=== PATIENT | male | born 1955 | race Caucasian/White ===

== ENCOUNTER → 2018-08-16 | Outpatient (CLI) | payer BC ==
--- NOTE | 2018-08-16 19:03 | PN ---
PROGRESS NOTE DATE OF SERVICE: 08/16/2018 63-year-old gentleman who has been followed in Sleep Center for treatment of obstructive sleep apnea-hypopnea syndrome. The patient successfully continuing to use his CPAP equipment every night for the whole night without any significant problems related to mask pressure or humidification. [place] Sleepiness Scale today is 4, which is normal. I checked his CPAP unit. CPAP pressure 9 cm of water. Usage is 100% of the time more than 4 hours. Leak is 4.4% which is borderline. Apnea-hypopnea index only 1.0, which is totally perfect. MEDICATIONS: Prozac, Lipitor, hydrochlorothiazide, aspirin, iron supplement. PHYSICAL EXAM: gentleman without distress. BP 143/87, HR 54, RR 16, height 6 feet 0 inches, weight 281.0, BMI 38.1, temperature 98.1, oxygen saturation on room air 94%. Oropharynx extremely low position of soft palate. ABDOMEN: Obese. Neck Supple, no JVD. Thyroid is not palpable. LUNGS Clear to percussion and to auscultation. Good air exchange. No wheezing or rhonchi. HEART S1, S2 regular. No murmurs, gallops, or rubs. ABDOMEN: Obese. Soft and nontender. Bowel sounds are present. No organomegaly appreciated. EXTREMITIES No clubbing or cyanosis. FIELD ADJUSTER Awake, alert, and oriented X3. Cranial nerves 2 to 7 intact. There is no fasciculation or atrophy. noted. No focal deficits observed. IMPRESSION: 1. Obstructive sleep apnea-hypopnea syndrome. The patient demonstrated 100% compliance with treatment benefitting from treatment. The patient has severe sleep apnea by results of sleep study in 2011. 2. Depression. 3. Hypertension. 4. Hyperlipidemia. 5. Allergy. 6. History of iron deficiency anemia. 7. History of polyps in the colon. 8. Nasoseptal deviation. PLAN: 1. Patient will continue to use CPAP equipment every night for the whole night. 2. Losing weight. 3. No driving if feeling sleepiness. 4. Prescription for all necessary CPAP supplies. 5. Patient CPAP unit is 6 years. It is still working. If any problem with the unit, it will be replaced. Thank you very much for allowing me to participate in management of your patient. Sincerely, Darren Garcia MD, PhD, FAASM Diplomat of [employer] Specialties [employer] Board of Internal Medicine [place] of [facility] [place] MMJOSE FRANCISCO / MOLLY: [id number] /
== END | disposition home or self-care (01) ==
LOC: SLEEP 15:05
PROVIDERS: ATTEND Internal Medicine
DX: G47.33 Obstructive sleep apnea (adult) (pediatric) (principal); F32.9 Major depressive disorder, single episode, unspecified; I10 Essential (primary) hypertension; E78.5 Hyperlipidemia, unspecified; J34.2 Deviated nasal septum; T78.40XD Allergy, unspecified, subsequent encounter; Z86.2 Personal history of diseases of the blood and blood-forming organs and certain disorders involving the immune mechanism; Z86.010 Personal history of colon polyps

== ENCOUNTER → 2019-08-29 | Outpatient (CLI) | payer BC ==
--- NOTE | 2019-08-29 19:04 | PN ---
PROGRESS NOTE DATE OF SERVICE: 08/29/2019 This patient is a 64-year-old gentleman who has been followed in Sleep Center for treatment of obstructive sleep apnea-hypopnea syndrome. The patient continues to use his CPAP equipment every night for the whole night with nasal pillow mask [employer] FX. He does not have significant problems with the mask, pressure or humidification. [place] Sleepiness Scale today is 3. I checked his CPAP unit. CPAP pressure is 9 cm of water. Usage is 30/30 nights for more than 4 hours with average usage 6.9 hours per night. Leak is 30 L/minute. Apnea- hypopnea index is only 2.3, which is absolutely perfect. MEDICATIONS: 1. Prozac. 2. Lipitor. 3. Hydrochlorothiazide. 4. Iron supplement. PHYSICAL EXAMINATION: GENERAL: A pleasant patient in no distress. VITAL SIGNS: BP 143/85, HR 57, RR 16, height 5 feet 11-3/4 inches, weight 281.0, temperature 98.4, oxygen saturation at room air 94%. Body mass index 38.4. HEENT: ONEALRJASMINE, EOMI. Evaluation of oropharynx showed tongue protrudes midline. Extremely low position of soft palate. Mallampati III to IV. NECK: Supple. No JVD. Thyroid is not palpable. LUNGS: Clear to percussion and to auscultation. Good air exchange. No wheezing or rhonchi. HEART: S1, S2 regular. No murmurs, gallops or rubs. ABDOMEN: Obese. EXTREMITIES: No clubbing or cyanosis. TILE MOLDER: Awake, alert, and oriented X3. Cranial nerves 2 to 7 intact. There is no fasciculation or atrophy. noted. No focal deficits observed. IMPRESSION: 1. Obstructive sleep apnea-hypopnea syndrome in severe range. He demonstrated 100% compliance with treatment, benefitting from treatment. 2. Depression. 3. Hypertension. 4. Hyperlipidemia. 5. Allergies. 6. History of polyps in the colon. Recently patient had colonoscopy; several polyps have been removed. 7. History of iron deficiency anemia, on iron supplement. 8. Nasal septum deviation. PLAN: 1. Patient will continue to use CPAP equipment every night for the whole night. 2. Losing weight. 3. Sleep hygiene with regular time in bed for at least 7-1/2 to 8 hours. 4. I will maintain prescriptions for all necessary CPAP supplies, including nasal pillow, mask, tube, filters. 5. Prescription for additional chinstrap. 6. No driving if feeling any sleepiness. 7. Follow-up visit in one year, or earlier if patient has any problems. Thank you very much for allowing me to participate in the management of your patient. Sincerely, Darren Garcia MD, PhD, FAASM Diplomat of [employer] Specialties [employer] Board of Internal Medicine [place] Manager of [facility] [place] MMODL / IJN: [id number] /
== END | disposition home or self-care (01) ==
LOC: SLEEP 15:12
PROVIDERS: ATTEND Internal Medicine
DX: G47.33 Obstructive sleep apnea (adult) (pediatric) (principal); F32.9 Major depressive disorder, single episode, unspecified; I10 Essential (primary) hypertension; E78.5 Hyperlipidemia, unspecified; T78.40XA Allergy, unspecified, initial encounter; Z86.010 Personal history of colon polyps; Z86.39 Personal history of other endocrine, nutritional and metabolic disease; J34.2 Deviated nasal septum; Z99.89 Dependence on other enabling machines and devices; Z79.899 Other long term (current) drug therapy

== ENCOUNTER → 2020-09-03 | Outpatient (CLI) | payer MEDICARE, BC ==
--- NOTE | 2020-09-03 22:20 | SFUN ---
SLEEP CENTER FOLLOW UP NOTE DATE OF SERVICE: 09/03/2020 This 65-year-old gentleman who has been followed in Sleep Center for treatment of obstructive sleep apnea-hypopnea syndrome. Patient continues to use CPAP equipment every night. No problems with the supplies. He sleeps well. No snoring. [place] Sleepiness Scale is 2. I checked his CPAP unit. CPAP pressure is 9 cm of water. Usage is 100% of the time, 8.4 hours per night. Leak is 31 L/minute. Apnea-hypopnea index is 4.1, which includes central apneas, index 1.7, which is in normal range. PRESENT MEDICATIONS: 1. Iron 65 mg twice a day. 2. Atorvastatin 40 mg once a day. 3. Fluoxetine 20 mg once a day. 4. Hydrochlorothiazide 25 mg once a day. PHYSICAL EXAMINATION: GENERAL: A pleasant patient in no distress. VITAL SIGNS: BP 148/81, HR 57, RR 15, height 5 feet 9-3/4 inches, weight 274.2, temperature 97.8, oxygen saturation at room air 98%. HEENT: PERRLA, EOMI. Evaluation of oropharynx showed tongue protrudes midline. Low position of soft palate. Mallampati III to IV. NECK: Supple. No JVD. Thyroid is not palpable. LUNGS: Clear to percussion and to auscultation. Good air exchange. No wheezing or rhonchi. HEART: S1, S2 regular. No murmurs, gallops or rubs. ABDOMEN: Obese. EXTREMITIES: No clubbing or cyanosis. CONCESSION WORKER: Awake, alert, and oriented X3. Cranial nerves 2 to 7 intact. There is no fasciculation or atrophy. noted. No focal deficits observed. IMPRESSION: 1. Obstructive sleep apnea-hypopnea syndrome. Patient demonstrated 100% compliance with treatment, benefitting from treatment. 2. Hypertension. 3. Depression. 4. Hyperlipidemia. 5. Allergies. 6. History of iron deficiency anemia. 7. Nasal septum deviation. PLAN: 1. Patient will continue to use PAP equipment every night for the whole night. 2. Sleep hygiene with regular time in bed for at least 7-1/2 to 8 hours. 3. Precautions related to driving. No driving if feeling sleepiness. 4. I will maintain all necessary prescription for PAP supplies including mask, tube, filters. 5. Watching weight. 6. No driving if feeling sleepiness. 7. Follow-up visit in 6 months or earlier if patient has any problems. Thank you very much for allowing me to participate in the management of your patient. Sincerely, Darren Garcia MD, PhD, FAASM Diplomat of [employer] Board [employer] Specialties Slovenian Board of Internal Medicine Pipe Fitter [place] of [facility] [place] MMJOSE FRANCISCO / MOLLY: [id number] /
== END | disposition home or self-care (01) ==
LOC: SLEEP 13:04
PROVIDERS: ATTEND Internal Medicine
DX: G47.33 Obstructive sleep apnea (adult) (pediatric) (principal); I10 Essential (primary) hypertension; F32.9 Major depressive disorder, single episode, unspecified; E78.5 Hyperlipidemia, unspecified; J34.2 Deviated nasal septum; Z86.2 Personal history of diseases of the blood and blood-forming organs and certain disorders involving the immune mechanism; T78.40XA Allergy, unspecified, initial encounter; Z79.899 Other long term (current) drug therapy; Z79.84 Long term (current) use of oral hypoglycemic drugs; Z99.89 Dependence on other enabling machines and devices

== ENCOUNTER → 2021-03-04 | Outpatient (CLI) | payer MEDICARE, BC ==
--- NOTE | 2021-03-04 22:49 | SFUN ---
SLEEP CENTER FOLLOW UP NOTE DATE OF SERVICE: 03/04/2021 This 65-year-old gentleman has been followed in Sleep Center for treatment of obstructive sleep apnea-hypopnea syndrome. The patient continues to use his CPAP equipment every night for the whole night. He denied any significant problems related to mask fitting, pressure or humidification. I checked his CPAP unit. CPAP pressure is 9 cm of water. Usage is 30/30 nights for more than 4 hours, average 8 hours per night. Leak is 25 L/minute, which is slightly high. Apnea-hypopnea index is 2.1, which is totally normal. CURRENT MEDICATIONS: 1. Atorvastatin 40 mg once a day. 2. Oxybutynin 5 mg once a day. 3. Fluoxetine 20 mg once a day. 4. Hydrochlorothiazide 25 mg once a day. PHYSICAL EXAMINATION: GENERAL: A pleasant patient in no distress. VITAL SIGNS: BP 152/83, HR 64, RR 18, height 6 feet 1/2 inch, weight 282.8, temperature 97.0, oxygen saturation at room air 97%. Body mass index 37.8. HEENT: ONEALRJASMINE, EOMI. Evaluation of oropharynx showed tongue protrudes midline. Low position of soft palate. Mallampati III to IV. NECK: Supple. No JVD. Thyroid is not palpable. LUNGS: Clear to percussion and to auscultation. Good air exchange. No wheezing or rhonchi. HEART: S1, S2 regular. No murmurs, gallops or rubs. ABDOMEN: Obese. EXTREMITIES: No clubbing or cyanosis. CONTACT LENS MOLDER: Awake, alert, and oriented X3. Cranial nerves 2 to 7 intact. There is no fasciculation or atrophy. noted. No focal deficits observed. IMPRESSION: 1. Obstructive sleep apnea-hypopnea syndrome. Patient demonstrated 100% compliance with treatment, benefitting from treatment. 2. Hypertension. 3. Hyperlipidemia. 4. History of depression. 5. Allergies. 6. History of iron deficiency anemia. 7. Nasal septum deviation. PLAN: 1. Patient will continue to use PAP equipment every night for the whole night. 2. Sleep hygiene with regular time in bed for at least 7-1/2 to 8 hours. 3. Precautions related to driving. No driving if feeling sleepiness. 4. I will maintain all necessary prescription for PAP supplies including mask, tube, filters. 5. Watching weight. 6. Follow-up visit in 6 months or earlier if patient has any problems. I spent 30 minutes with the patient and his records and checking the CPAP unit. Thank you very much for allowing me to participate in the management of your patient. Sincerely, Darren Garcia MD, PhD, FAASM Diplomat of [employer] Board of Medical Specialties Ang[employer] Board of Internal Medicine Senior Data Integration Developer of [facility] [place] MMODL / LIZBETN: [id number] /
== END ==
LOC: SLEEP 13:51
PROVIDERS: ATTEND Internal Medicine
DX: G47.33 Obstructive sleep apnea (adult) (pediatric) (principal); I10 Essential (primary) hypertension; E78.5 Hyperlipidemia, unspecified; F32.9 Major depressive disorder, single episode, unspecified; J34.2 Deviated nasal septum; Z86.2 Personal history of diseases of the blood and blood-forming organs and certain disorders involving the immune mechanism; Z91.09 Other allergy status, other than to drugs and biological substances; Z79.899 Other long term (current) drug therapy

== ENCOUNTER → 2022-01-12 | Outpatient (CLI) | payer MEDICARE, BC ==
--- NOTE | 2022-01-12 19:03 | SFUN ---
SLEEP CENTER FOLLOW UP NOTE DATE OF SERVICE: 01/12/2022 This 66-year-old gentleman has been followed in Sleep Center for treatment of obstructive sleep apnea-hypopnea syndrome. The patient continues to use his CPAP equipment, getting his supplies on time. According to him, no significant problems with the machine. [place] Sleepiness Scale today is 6, which is normal. I checked his CPAP unit. The air filter is in very bad shape. CPAP pressure is 9 cm of water, usage 30/30 nights for more than 4 hours, average 8 hours per night. Leak is 26 L/minute, apnea-hypopnea index 2.1, which is normal. MEDICATIONS: 1. Fluoxetine 40 mg once a day. 2. Atorvastatin 40 mg once a day. 3. Hydrochlorothiazide 25 mg once a day. 4. Oxybutynin 5 mg once a day. 5. Omeprazole 20 mg once a day. PHYSICAL EXAMINATION: GENERAL: Pleasant patient in no distress. VITAL SIGNS: BP 128/91, HR 68, RR 16, weight 282 pounds, temperature 97.2, oxygen saturation at room air 97%. HEENT: PERRLA, EOMI, evaluation of oropharynx showed tongue protrudes midline. Low position of soft palate; Mallampati III to IV. NECK: Supple, no JVD. Thyroid is not palpable. LUNGS: Clear to percussion and to auscultation. Good air exchange. No wheezing or rhonchi. HEART: S1, S2 regular. No murmurs, gallops, or rubs. ABDOMEN: Soft and nontender. Bowel sounds are present. No organomegaly appreciated. EXTREMITIES: No clubbing or cyanosis. BURRING WHEEL OPERATOR: Awake, alert, and oriented X3. Cranial nerves 2 to 7 intact. There is no fasciculation or atrophy. noted. No focal deficits observed. IMPRESSION: 1. Obstructive sleep apnea-hypopnea syndrome. The patient demonstrated 100% compliance with treatment, normal respiration on CPAP, benefitting from treatment. 2. Hypertension. 3. History of depression. 4. Hyperlipidemia. 5. History of iron deficiency anemia. 6. Allergies. 7. Nasal septum deviation. PLAN: 1. Replace air filter immediately. I discussed with the patient the necessity of changing the air filter at least once per month. He promised to follow recommendations. 2. Patient will continue to use PAP equipment every night for the whole night. 3. Sleep hygiene with regular time in bed for at least 7-1/2 to 8 hours. 4. Precautions related to driving. No driving if feeling sleepiness. 5. I will maintain all necessary prescription for PAP supplies including mask, tube, filters. 6. Watching weight. 7. Follow-up visit in 6 months or earlier if patient has any problems. Thank you very much for allowing me to participate in the management of your patient. Sincerely, Darren Garcia MD, PhD, FAASM Diplomat of [place] [employer] Specialties Sleep Medicine Board of [place] Board of Internal Medicine Care Clinician of [facility] [place] MMODL / LIZBETN: [id number] /
== END ==
LOC: SLEEP 13:26
PROVIDERS: ATTEND Internal Medicine
DX: G47.33 Obstructive sleep apnea (adult) (pediatric) (principal); I10 Essential (primary) hypertension; F32.A Depression, unspecified; E78.5 Hyperlipidemia, unspecified; T78.40XA Allergy, unspecified, initial encounter; J34.2 Deviated nasal septum; Z86.2 Personal history of diseases of the blood and blood-forming organs and certain disorders involving the immune mechanism; Z99.89 Dependence on other enabling machines and devices

== ENCOUNTER → 2022-07-06 | Outpatient (CLI) | payer MEDICARE, BC ==
--- NOTE | 2022-07-06 11:59 | P.PN ---
Subjective DATE: 07/06/2022 FOLLOW UP VISIT. Patient with obstructive sleep apnea hypopnea syndrome return to sleep center for follow-up visit. Information from previous visit have been reviewed. Patient is using PAP equipment every night for the whole night, getting PAP supplies in time. The patient does not have significant problems with the mask, PAP unit and humidification. [place] sleepiness scale is 5. I checked PAP unit. Air filter is in good shape. PAP unit pressure 9 cm H2O. Usage is 100 % for more then 4 hours, average 7.7 hours per night. Leak is slightly increased 29.8 l/m, which is in acceptable range. Apnea Hypopnea Index is 2.9, which is normal. MEDICATIONS:1. Atorvastatin 40 mg once a day 2. Fluoxetine 40 mg once a day 3. Hydrochlorothiazide 25 mg once a day 4. Omeprazole 20 mg 3 times a week 5. Iron 65 mg twice a day 6. Oxybutynin 5 mg twice a day During physical exam: GENERAL: A pleasant patient without any distress. VITAL SIGNS: BP 146/90, HR 48, RR 16 , weight 290, height 6 foot and half inch,body mass index 38.7, [id number]], oxygen saturation at room ai 98 ]% . HEENT: PERRLA, EOMI.low position of soft palate, Mallapat 3-4] . NECK: Supple. No JVD. LUNGS: Clear to percussion and to auscultation. Good air exchange. No wheezing or rhonchi. HEART: S1, S2 regular. ABDOMEN: Soft and nontender obese] EXTREMITIES: No clubbing or cyanosis. MANAGER BENCH: Awake, alert, and oriented x3. No focal deficit. Impressions: 1. Obstructive sleep apnea-hypopnea syndrome. Patient demonstrated great compliance with treatment, benefiting from treatment. 2. Obesity body mass index 38.7, patient increase his weight on 8 pounds]. 3. Hypertension]. 4. Hyperlipidemia]. 5. History of depression]. 6. History of iron deficiency anemia]. 7. Nasal septum deviation]. 8. ALLERGIES]. Plan: 1. Continue using PAP equipment every night for the whole night. 2. To change air filter at least 1-2 times per month. 3. PAP unit should stay lower then position of the head. 4. Advised patient to remove all remaining water from humidifier canister daily and make it dry after each usage. Refill canister with fresh distilled water before each usage. 5. Sleep hygiene with regular time in bed for at least 8 hours. 6. Precautions related to driving. No driving if feel any sleepiness. 7. I will maintain prescription for PAP supplies including mask, tube, filters. 8. Follow up visit in 6 months or earlier if patient has any problems. 9. Watching ant losing weight. Thank you very much for allowing me to participate in the management of your pat ient. Darren Garcia MD, PhD, FAASM. Diplomat of [place] Board of Sleep Medicine, Sleep Medicine Board by [place] Board of Internal Medicine Mammography Supervisor of [facility] [place] (
== END ==
LOC: SLEEP 11:39
PROVIDERS: ATTEND Internal Medicine
DX: G47.33 Obstructive sleep apnea (adult) (pediatric) (principal); E66.9 Obesity, unspecified; Z68.38 Body mass index [BMI] 38.0-38.9, adult; I10 Essential (primary) hypertension; E78.5 Hyperlipidemia, unspecified; F32.A Depression, unspecified; Z86.2 Personal history of diseases of the blood and blood-forming organs and certain disorders involving the immune mechanism; J34.2 Deviated nasal septum; T78.40XA Allergy, unspecified, initial encounter; Z99.89 Dependence on other enabling machines and devices; Z87.891 Personal history of nicotine dependence

== ENCOUNTER → 2023-01-11 | Outpatient (CLI) | payer MEDICARE, BC ==
--- NOTE | 2023-01-11 12:24 | P.PN ---
Subjective DATE: 01/11/2023 FOLLOW UP VISIT. Patient with obstructive sleep apnea hypopnea syndrome return to sleep center for follow-up visit. Information from previous visit have been reviewed. Patient is using PAP equipment every night for the whole night, getting PAP supplies in time. The patient does not have significant problems with the mask, PAP unit and humidification. [place] sleepiness scale is 7, which is normal. I checked information from PAP unit and explaining to the patient in details. PAP unit pressure 9 cm H2O. Usage is 100 % for more then 4 hours, average 8.2 hours per night. Leak is 26 l/m, which is in acceptable range. Apnea Hypopnea Index is 1.9, which is normal. MEDICATIONS:1. Fluoxetine 40 mg once a day 2. Hydrochlorothiazide 25 mg once a day 3. Oxybutynin 5 mg once a day 4. Atorvastatin 40 mg once a day 5. Omeprazole 20 mg 3 times a week During physical exam: GENERAL: A pleasant patient without any distress. VITAL SIGNS: BP 155 for 83, HR 49, RR 18, weight to 93.0, temperature 98.0, oxygen saturation at room air 97 % . HEENT: PERRLA, EOMI.low position of soft palate, Mallapati 3-4. NECK: Supple. No JVD. LUNGS: Clear to percussion and to auscultation. Good air exchange. No wheezing or rhonchi. HEART: S1, S2 regular. ABDOMEN: Soft and nontender. Obese EXTREMITIES: No clubbing or cyanosis. EMR IMPLEMENTATION SPECIALIST: Awake, alert, and oriented x3. No focal deficit. Impressions: 1. Obstructive sleep apnea-hypopnea syndrome. Patient demonstrated great compliance with treatment, benefiting from treatment. 2. Bradycardia, regular rhythm. 3. Hypertension. 4. Obesity. 5. Hyperlipidemia. 6. History of depression. 7. History of iron deficiency anemia. 8. Nasal septum deviation. 9. ALLERGIES. Plan: 1. Continue using PAP equipment every night for the whole night. 2. To change air filter at least 1-2 times per month. 3. PAP unit should stay lower then position of the head. 4. Advised patient to remove all remaining water from humidifier canister daily and make it dry after each usage. Refill canister with fresh distilled water before each usage. 5. Sleep hygiene with regular time in bed for at least 8 hours. 6. Precautions related to driving. No driving if feel any sleepiness. 7. I will maintain prescription for PAP supplies including mask, tube, filters. 8. .Watching weight. 9. Follow up visit in 6 months or earlier if patient has any problems 10. Follow with primary care physician for bradycardia. Thank you very much for allowing me to participate in the management of your patient. Darren Garcia MD, PhD, FAASM. Diplomat of [place] Board of Sleep Medicine, Sleep Medicine Board by [place] Board of Internal Medicine Manager Psychiatry of [facility] [place]
== END ==
LOC: SLEEP 11:45
PROVIDERS: ATTEND Internal Medicine
DX: G47.33 Obstructive sleep apnea (adult) (pediatric) (principal); F32.A Depression, unspecified; E78.5 Hyperlipidemia, unspecified; E66.9 Obesity, unspecified; I10 Essential (primary) hypertension; J34.2 Deviated nasal septum; Z99.89 Dependence on other enabling machines and devices
CPT/HCPCS: 99212

== ENCOUNTER → 2023-08-31 | Outpatient (CLI) | payer MEDICARE, BC ==
--- NOTE | 2023-08-31 16:03 | P.PN ---
Subjective DATE: 08/31/2023 FOLLOW UP VISIT. Patient with obstructive sleep apnea hypopnea syndrome return to sleep center for follow-up visit. Information from previous visit have been reviewed. Patient is using PAP equipment every night for the whole night, getting PAP supplies in time. The patient does not have significant problems with the mask, PAP unit and humidification. [place] sleepiness scale is 8, which is in normal range. I checked information from PAP unit and explained to the patient in details. PAP unit pressure 9 cm H2O. Usage is 100 % for more then 4 hours, average 7.6 hours per night. Leak is 34 l/m, which is in acceptable range. Apnea Hypopnea Index is 1.5, which is normal. MEDICATIONS:1. Atorvastatin 40 mg once a day 2. Hydrochlorothiazide 25 mg once a day 3. Fluoxetine 40 mg once a day 4. Oxybutynin 5 mg twice a day 5. Omeprazole 20 mg once a day During physical exam: GENERAL: A pleasant patient without any distress. VITAL SIGNS: BP 146/85, HR 61, RR 18, weight 291.6, temperature 97.6, oxygen saturation at room air 95 % . HEENT: PERRLA, EOMI.low position of soft palate, Mallapati 3-4 . NECK: Supple. No JVD. LUNGS: Clear to percussion and to auscultation. Good air exchange. No wheezing or rhonchi. HEART: S1, S2 regular. ABDOMEN: Soft and nontender.[] EXTREMITIES: No clubbing or cyanosis. EMPLOYEE PLACEMENT SPECIALIST: Awake, alert, and oriented x3. No focal deficit. Impressions: 1. Obstructive sleep apnea-hypopnea syndrome. Patient demonstrated great compliance with treatment, benefiting from treatment. 2. Hypertension. 3. Obesity. 4. Hyperlipidemia. 5. History of depression. 6. ALLERGIES. 7. Nasal septum deviation. 8. History of iron deficiency anemia. Plan: 1. Continue using PAP equipment every night for the whole night. 2. To change air filter at least 1-2 times per month. 3. PAP unit should stay lower then position of the head. 4. Advised patient to remove all remaining water from humidifier canister daily and make it dry after each usage. Refill canister with fresh distilled water before each usage. 5. Sleep hygiene with regular time in bed for at least 8 hours. 6. Precautions related to driving. No driving if feel any sleepiness. 7. I will maintain prescription for PAP supplies including mask, tube, filters. 8. Follow up visit in 6 months or earlier if patient has any problems. 9. Watching and losing weight. Thank you very much for allowing me to participate in the management of your patient. Darren Garcia MD, PhD, FAASM. Diplomat of [place] Board of Sleep Medicine, Sleep Medicine Board by [place] [employer] Board of Internal Medicine Manager Activities of [facility] [place]
== END ==
LOC: 3 N SLEEP 14:21
PROVIDERS: ATTEND Internal Medicine
DX: G47.33 Obstructive sleep apnea (adult) (pediatric) (principal); E66.9 Obesity, unspecified; E78.5 Hyperlipidemia, unspecified; F32.A Depression, unspecified; I10 Essential (primary) hypertension; J34.2 Deviated nasal septum; D50.9 Iron deficiency anemia, unspecified; Z79.899 Other long term (current) drug therapy; Z99.89 Dependence on other enabling machines and devices
CPT/HCPCS: 99212

== ENCOUNTER → 2024-04-04 | Outpatient (CLI) | payer MEDICARE, BC ==
[2024-04-04 10:57] VITALS: BP 126/74; PULSE 66; RESP 18; TEMP 98.2
--- NOTE | 2024-04-04 11:27 | P.PROGSL ---
Subjective DATE: 04/04/2024 FOLLOW UP VISIT. Patient with obstructive sleep apnea hypopnea syndrome return to sleep center for follow-up visit. Information from previous visit have been reviewed. Patient is using PAP equipment every night for the whole night, getting PAP supplies in time. The patient does not have significant problems with the mask, PAP unit and humidification. [place] sleepiness scale is 8, which is normal. I checked information from PAP unit. PAP unit pressure 9 cm H2O. Usage is 100% for more then 4 hours, average 7.6 hours per night. Leak is 23 l/m, which is in acceptable range. Apnea Hypopnea Index is 1.8, which is normal. MEDICATIONS: Please see below During physical exam: GENERAL: A pleasant patient without any distress. VITAL SIGNS: Please see below, weight 289.0, BMI 39.6. HEENT: PERRLA, EOMI.low position of soft palate, Mallapati 3-4 . NECK: Supple. No JVD. LUNGS: Clear to percussion and to auscultation. Good air exchange. No wheezing or rhonchi. HEART: S1, S2 regular. ABDOMEN: Soft and nontender. Obese EXTREMITIES: No clubbing or cyanosis. BOOSTER PUMP OILER: Awake, alert, and oriented x3. No focal deficit. Impressions: 1. Obstructive sleep apnea-hypopnea syndrome. Patient demonstrated great compliance with treatment, benefiting from treatment. 2. Obesity, BMI 39.6. 3. Hypertension. 4. History of depression. 5. Hyperlipidemia. 6. Allergies. 7. History of iron deficiency anemia. 8. Nasal septum deviation. Plan: 1. Continue using PAP equipment every night for the whole night. 2. To change air filter at least 1-2 times per month. 3. PAP unit should stay lower then position of the head. 4. Advised patient to remove all remaining water from humidifier canister daily and make it dry after each usage. Refill canister with fresh distilled water before each usage. 5. Sleep hygiene with regular time in bed for at least 8 hours. 6. Precautions related to driving. No driving if feel any sleepiness. 7. I will maintain prescription for PAP supplies including mask, tube, filters. 8.Watching and losing weight. 9. Follow up visit in 6 months or earlier if patient has any problems. Thank you very much for allowing me to participate in the management of your patient. Darren Garcia MD, PhD, FAASM. Diplomat of [employer], Sleep Medicine Board by [employer] [facility] [place] Objective - Vital Signs Vital Signs: Vital Signs Temp 98.2 F 04/04/24 10:55 Pulse 66 04/04/24 10:55 Resp 18 04/04/24 10:55 BP 126/74 04/04/24 10:55 Pulse Ox 97 04/04/24 10:55 FiO2 Intake & Output 04/03/24 04/04/24 04/04/24 18:59 06:59 18:59 Weight 131.088 kg Home Medications: Home Medications Medication Instructions Recorded Confirmed Type Atorvastatin [Lipitor] 40 mg PO DAILY 04/04/24 04/04/24 History FLUoxetine HCL 40 mg PO DAILY 04/04/24 04/04/24 History Omeprazole 20 mg PO DAILY 04/04/24 04/04/24 History hydroCHLOROthiazide 25 mg PO DAILY 04/04/24 04/04/24 History oxyBUTYnin chloride 5 mg PO BID 04/04/24 04/04/24 History
== END ==
LOC: 3 N SLEEP 10:32
PROVIDERS: ATTEND Internal Medicine
DX: G47.33 Obstructive sleep apnea (adult) (pediatric) (principal); E66.9 Obesity, unspecified; I10 Essential (primary) hypertension; J34.2 Deviated nasal septum; E78.5 Hyperlipidemia, unspecified; Z86.59 Personal history of other mental and behavioral disorders; Z86.2 Personal history of diseases of the blood and blood-forming organs and certain disorders involving the immune mechanism; Z99.89 Dependence on other enabling machines and devices; Z91.09 Other allergy status, other than to drugs and biological substances; Z68.39 Body mass index [BMI] 39.0-39.9, adult
CPT/HCPCS: 99212

== ENCOUNTER → 2024-11-28 | Outpatient (CLI) | payer MEDICARE, BC ==
[2024-11-28 10:58] VITALS: BP 144/90; PULSE 60; RESP 16; TEMP 98.6
--- NOTE | 2024-11-28 11:14 | P.PROGSL ---
Subjective DATE: 11/28/2024 FOLLOW UP VISIT. Patient with obstructive sleep apnea hypopnea syndrome return to sleep center for follow-up visit. Information from previous visit have been reviewed. Patient is using PAP equipment every night for the whole night, getting PAP supplies in time. The patient does not have significant problems with the mask, PAP unit and humidification. [place] sleepiness scale is 7, which is normal. I checked information from PAP unit. PAP unit pressure 9 cm H2O. Usage is 100% for more then 4 hours, average 8.3 hours per night. Leak is 28 l/m, which is slightly increased. Apnea Hypopnea Index is 2.4, which is normal. MEDICATIONS have been reviewed, please see below. During physical exam: GENERAL: A pleasant patient without any distress. VITAL SIGNS: Please see below, weight is 292 lbs. HEENT: PERRLA, EOMI.low position of soft palate, Mallapati 34. NECK: Supple. No JVD. LUNGS: Clear to percussion and to auscultation. Good air exchange. No wheezing or rhonchi. HEART: S1, S2 regular. ABDOMEN: Soft and nontender.[] EXTREMITIES: No clubbing or cyanosis. AVIATION NEUROPSYCHOLOGIST: Awake, alert, and oriented x3. No focal deficit. Impressions: 1. Obstructive sleep apnea-hypopnea syndrome. Patient demonstrated great compliance with treatment, benefiting from treatment. 2. Obesity, BMI 39.9, patient increased weight on 3 pounds comparing with previous visit. 3. Hypertension. 4. History of depression. 5. Nasal septum deviation. 6. History of iron deficiency anemia, on iron supplement. 7. Allergies. 8. Hyperlipidemia. Plan: 1. Continue using PAP equipment every night for the whole night. 2. Sleep hygiene with regular time in bed for at least 7.5-8 hours 3. PAP unit should stay lower then position of the head. 4. Advised patient to remove all remaining water from humidifier canister daily and make it dry after each usage. Refill canister with fresh distilled water before each usage. 5. Watching and losing weight. 6. Precautions related to driving. No driving if feel any sleepiness. 7. I will maintain prescription for PAP supplies including mask, tube, filters. 8. Follow up visit in 8 months or earlier if patient has any problems. Thank you very much for allowing me to participate in the management of your patient. Darren Garcia MD, PhD, FAASM. Diplomat of [employer], Sleep Medicine Board by [employer] Contact [employer] [facility] [place] Objective - Vital Signs Vital Signs: Vital Signs Temp 98.6 F 11/28/24 10:58 Pulse 60 11/28/24 10:58 Resp 16 11/28/24 10:58 BP 144/90 11/28/24 10:58 Pulse Ox 96 11/28/24 10:58 FiO2 Intake & Output 11/27/24 11/28/24 11/28/24 18:59 06:59 18:59 Weight 132.449 kg Home Medications: Home Medications Medication Instructions Recorded Confirmed Type Atorvastatin [Lipitor] 40 mg PO DAILY 04/04/24 11/28/24 History FLUoxetine HCL 40 mg PO DAILY 04/04/24 11/28/24 History Omeprazole 20 mg PO DAILY 04/04/24 04/04/24 History hydroCHLOROthiazide 25 mg PO DAILY 04/04/24 11/28/24 History oxyBUTYnin chloride 5 mg PO BID 04/04/24 11/28/24 History
== END ==
LOC: 3 N SLEEP 10:22
PROVIDERS: ATTEND Internal Medicine
DX: G47.33 Obstructive sleep apnea (adult) (pediatric) (principal); E66.9 Obesity, unspecified; Z68.39 Body mass index [BMI] 39.0-39.9, adult; I10 Essential (primary) hypertension; J34.2 Deviated nasal septum; E78.5 Hyperlipidemia, unspecified; Z86.2 Personal history of diseases of the blood and blood-forming organs and certain disorders involving the immune mechanism
CPT/HCPCS: 99211